=== PATIENT | female | born 1995 | race Hispanic/Latino ===

== ENCOUNTER 2022-12-15 14:42 | Emergency (ER) | payer OTHER ==
[~2022-12-15] VITALS: Ht 162.6 cm; Wt 65.8 kg
[2022-12-15 19:15] VITALS: BP 157/95
== END 2022-12-15 19:15 | disposition home or self-care (01) ==
LOC: FSED 14:53
DX: O03.9 Complete or unspecified spontaneous abortion without complication (principal)
CPT/HCPCS: 76801; 76830; 99283